=== PATIENT | female | born 1985 | race Caucasian/White ===

== ENCOUNTER 2020-06-20 14:20 | Emergency (ER) ==
[2020-06-20 14:26] VITALS: BP 134/88
== END 2020-06-20 16:18 | disposition left against medical advice (07) ==
LOC: ER 14:20
DX: Z53.21 Procedure and treatment not carried out due to patient leaving prior to being seen by health care provider (principal)

== ENCOUNTER 2020-06-21 19:11 | Emergency (ER) | payer MEDICARE, MEDICAID ==
--- NOTE | 2020-06-21 19:47 | ER Document Report ---
HPI - HPI Time Seen by Provider: 06/21/20 19:23 Notes: 34-year-old female patient presenting to the emergency department requesting COVID-19 testing. She states she has been having cough and shortness of breath for a week now. She did come to the emergency department yesterday but left without being seen. She is mildly tachycardic on arrival with a heart rate of 108, patient reports her heart rate usually ranges from 110-120. She has not had any known exposure to any COVID-19 positive persons. - ROS Systems Reviewed and Negative: Yes All other systems reviewed and negative - CONSTITUTIONAL Constitutional: REPORTS: Fever, Chills - EENT EENT: REPORTS: Sore Throat. DENIES: Ear Pain, Eye problems - NEURO Neurology: REPORTS: Headache. DENIES: Weakness, Vision blurred, Dizzinesss / Vertigo - CARDIOVASCULAR Cardiovascular: REPORTS: Chest pain - RESPIRATORY Respiratory: REPORTS: Trouble Breathing, Coughing - GASTROINTESTINAL Gastrointestinal: DENIES: Abdominal Pain, Black / Bloody Stools - URINARY Urinary: DENIES: Dysuria, Urgency, Frequency - MUSCULOSKELETAL Musculoskeletal: DENIES: Extremity pain Past Medical History - General Information source: Patient - Social History Smoking Status: Current Every Day Smoker Frequency of alcohol use: None Family History: DM, Hypertension - Past Medical History Cardiac Medical History: Reports: Hx Hypertension Pulmonary Medical History: Reports: Hx Asthma Endocrine Medical History: Reports: Hx Diabetes Mellitus Type 2 Psychiatric Medical History: Reports: Hx Bipolar Disorder Past Surgical History: Reports: Hx Hysterectomy Vertical Provider Document - CONSTITUTIONAL Notes: PHYSICAL EXAMINATION: GENERAL: Well-appearing, well-nourished and in no acute distress. HEAD: Atraumatic, normocephalic. EYES: Pupils equal round and reactive to light, extraocular movements intact, conjunctiva are normal. ENT: Nares patent, oropharynx clear without exudates. Moist mucous membranes. NECK: Normal range of motion, supple without lymphadenopathy LUNGS: Breath sounds clear to auscultation bilaterally and equal. No wheezes rales or rhonchi. HEART: Regular rate and rhythm without murmurs ABDOMEN: Soft, nontender, nondistended abdomen. No guarding, no rebound. No masses appreciated. Female : deferred Musculoskeletal: Normal range of motion, no pitting or edema. No cyanosis. NEUROLOGICAL: Cranial nerves grossly intact. Normal speech, normal gait. Normal sensory, motor exams PSYCH: Normal mood, normal affect. SKIN: Warm, Dry, normal turgor, no rashes or lesions noted. Course - Re-evaluation Re-evalutation: Patient appears well, nontoxic, chest x-ray unremarkable. Patient's heart rate is elevated to 108, she states this is her baseline. She will be discharged home after administration of a COVID-19 test. I will give her a prescription for some Tessalon Perles. Patient understands the need to self quarantine until she receives her test results or becomes asymptomatic for at least 3 days. - Vital Signs Vital signs: Temp Pulse Resp BP Pulse Ox 99.6 F 108 H 142/94 H 98 06/21/20 19:22 06/21/20 19:22 06/21/20 19:22 06/21/20 19:22 Discharge - Discharge Clinical Impression: Encounter for laboratory testing for COVID-19 virus Condition: Stable Disposition: HOME, SELF-CARE Additional Instructions: Your COVID-19 results are pending. Please self quarantine until you have received your results. Tylenol or ibuprofen for any fever or body aches. Stop smoking. Drink plenty of fluids. Return to the emergency department if you develop profound difficulty breathing. Prescriptions: Benzonatate [Tessalon Perles 100 mg Capsule] 2 tab PO Q8HP PRN #30 capsule PRN Reason:
--- NOTE | 2020-06-21 20:38 | RADIOLOGY REPORT (SQ) ---
EXAM DESCRIPTION: XR CHEST 1 VIEW COMPLETED DATE/TME: 06/21/2020 19:46 CLINICAL HISTORY: 34 years, Female, cough/shortness of breath COMPARISON: None. TECHNIQUE: Upright portable chest x-ray FINDINGS: Cardiomediastinal silhouette is not enlarged. No suspicious acute lung pleural bone abnormalities. IMPRESSION: Negative chest x-ray
[2020-06-21] MEDS ORDERED: BENZONATATE 100 MG CAPSULE PO ONE (21:44)
[2020-06-21] MEDS ORDERED: ONDANSETRON ODT 4 MG TAB (6 TAB/ER DISP) PO PRN (21:44)
[2020-06-21 22:36] VITALS: BP 145/90
== END 2020-06-21 22:49 | disposition home or self-care (01) ==
LOC: ER 19:11
DX: R05 Cough (principal); J45.909 Unspecified asthma, uncomplicated; R06.02 Shortness of breath; R50.9 Fever, unspecified; R00.0 Tachycardia, unspecified; J02.9 Acute pharyngitis, unspecified; R51 Headache; F17.200 Nicotine dependence, unspecified, uncomplicated; I10 Essential (primary) hypertension; E11.9 Type 2 diabetes mellitus without complications; Z20.828 Contact with and (suspected) exposure to other viral communicable diseases
CPT/HCPCS: 99284; 71045; U0003; A9270 ×2; C9803; 87635

== ENCOUNTER → 2020-07-15 | Outpatient (CLI) | payer MEDICARE, MEDICAID ==
[2020-07-15 10:18] LABS: ALKALINE PHOSPHATASE 89 U/L (38-126); ANION GAP 14 (5-19); ASPARTATE AMINO TRANSFERASE 25 U/L (14-36); BILIRUBIN,DIRECT 0.4 mg/dL (0.0-0.4); BILIRUBIN,TOTAL 0.5 mg/dL (0.2-1.3); CALCIUM 9.4 mg/dL (8.4-10.2); CARBON DIOXIDE 20 mmol/L (22-30); CHLORIDE 99 mmol/L (98-107); GLUCOSE 348 mg/dL (75-110); POTASSIUM 4.8 mmol/L (3.6-5.0); TOTAL PROTEIN 7.2 g/dL (6.3-8.2)
[2020-07-15 10:19] LABS: BLOOD UREA NITROGEN 17 mg/dL (7-20)
[2020-07-15 10:24] LABS: CHOLESTEROL 364.25 mg/dL (0-200)
--- NOTE | 2020-07-15 13:07 | RADIOLOGY REPORT (SQ) ---
EXAM DESCRIPTION: LUMBAR SPINE COMPLETE IMAGES COMPLETED DATE/TIME: 07/15/2020 9:37 am REASON FOR STUDY: LUMBAGO WITH SCIATICA, LEFT SIDE M54.42 LUMBAGO WITH SCIATICA, LEFT SIDE R91.8 O THER NONSPECIFIC ABNORMAL FINDING OF LUNG FIELD I10 ESSENTIAL (PRIMARY) HYPERTENSION COMPARISON: None. NUMBER OF VIEWS: Five views including obliques. TECHNIQUE: AP, lateral, oblique, and sacral radiographic images acquired of the lumbar spine. LIMITATIONS: None. FINDINGS: MINERALIZATION: Normal. SEGMENTATION: Normal. No transitional anatomy. ALIGNMENT: Normal. VERTEBRAE: Maintained height. No fracture or worrisome bone lesion. DISCS: Preserved height. No significant osteophytes or end plate irregularity. POSTERIOR ELEMENTS: Pedicles and facets are intact. No pars defect or posterior arch defects. HARDWARE: None in the spine. PARASPINAL SOFT TISSUES: Normal. PELVIS: Intact as visualized. No fractures or worrisome bone lesions. SI joints intact. OTHER: No other significant finding. IMPRESSION: NORMAL 5 VIEW LUMBAR SPINE. TECHNICAL DOCUMENTATION: JOB ID: [id number] [employer]- All Rights Reserved Reading location - IP/workstation name: [email or web address]
[2020-07-15 13:55] LABS: TRIGLYCERIDES 6409 mg/dL (<150)
== END ==
LOC: OD 08:59
PROVIDERS: ATTEND Nurse Practitioner Adult Health
DX: R91.8 Other nonspecific abnormal finding of lung field (principal); M54.42 Lumbago with sciatica, left side; I10 Essential (primary) hypertension; E11.9 Type 2 diabetes mellitus without complications
CPT/HCPCS: 36415; 72110; 80053; 80061; 83036

== ENCOUNTER → 2020-08-11 | Outpatient (CLI) | payer MEDICARE, MEDICAID ==
--- NOTE | 2020-08-11 12:37 | RADIOLOGY REPORT (SQ) ---
EXAM DESCRIPTION: CHEST PA/LATERAL IMAGES COMPLETED DATE/TIME: 08/11/2020 9:43 am REASON FOR STUDY: SOLITARY PULMONARY NODULE COMPARISON: 06/21/2020 EXAM PARAMETERS: NUMBER OF VIEWS: two views TECHNIQUE: Digital Frontal and Lateral radiographic views of the chest acquired. RADIATION DOSE: NA LIMITATIONS: none FINDINGS: LUNGS AND PLEURA: No opacities, masses or pneumothorax. No pleural effusion. MEDIASTINUM AND HILAR STRUCTURES: No masses or contour abnormalities. HEART AND VASCULAR STRUCTURES: Heart normal size. No evidence for failure. BONES: No acute findings. HARDWARE: None in the chest. OTHER: No other significant finding. IMPRESSION: NO SIGNIFICANT RADIOGRAPHIC FINDING IN THE CHEST. TECHNICAL DOCUMENTATION: JOB ID: [id number] 2010 [employer]- All Rights Reserved Reading location - IP/workstation name: [email or web address]
== END ==
LOC: OD 09:06
PROVIDERS: ATTEND Nurse Practitioner Family
DX: R91.1 Solitary pulmonary nodule (principal)
CPT/HCPCS: 71046

== ENCOUNTER 2020-11-07 17:06 | Emergency (ER) | payer MEDICARE, MEDICAID ==
--- NOTE | 2020-11-07 17:27 | ER Document Report ---
ED Medical Screen (RME) - General Stated Complaint: BREATHING PROBLEM, CHEST PAIN, HEADACHE Primary Care Provider: AUNG ALCANTAR NP [Primary Care Provider] - Follow up as needed - HPI Notes: 11/07/20 17:24 Rapid Medical Exam HPI: Pt is a 35yo female c/o worsening sob, diarrhea, and coughing since diagnosed w/ COVID. limited po intake due to everytime she tries to eat it makes her cough. pt took dayquil a couple hours ago. temp today 100.8 at 1400. using inhaler w/o relief. Physical Exam: GENERAL: well-nourished and mild distress due to illness. HEAD: Atraumatic, normocephalic. ENT: Moist mucous membranes. RESP: tachypnea, mildly labored CV- tachy NEURO: No focal neurological deficits. Moves all extremities spontaneously and on command. My involvement in this patients care was limited to a rapid initial assessment. A comprehensive ED assessment and evaluation of the patient, analysis of test results, treatment, and completion of the medical decision making process will be performed by other ER providers. Past Medical History - Past Medical History Cardiac Medical History: Reports: Hx Hypertension Pulmonary Medical History: Reports: Hx Asthma Endocrine Medical History: Reports: Hx Diabetes Mellitus Type 2 Psychiatric Medical History: Reports: Hx Bipolar Disorder Past Surgical History: Reports: Hx Hysterectomy Doctor's Discharge - Discharge Referrals: AUNG ALCANTAR NP [Primary Care Provider] - Follow up as needed
[2020-11-07] MEDS ORDERED: DEXAMETHASONE SOD PHOS INJ 10 MG/1 ML VIAL IV ONE (17:28)
[2020-11-07] MEDS ORDERED: NORMAL SALINE 500 ML IV ONE (17:28)
[2020-11-07 17:33] VITALS: BP 138/89
--- NOTE | 2020-11-07 17:54 | EKG REPORT ---
SEVERITY:- ABNORMAL ECG - SINUS TACHYCARDIA LEFT ATRIAL ABNORMALITY : Confirmed by: Keaton Morgan MD 07-Nov-2020 17:53:37
--- NOTE | 2020-11-07 18:06 | RADIOLOGY REPORT (SQ) ---
EXAM DESCRIPTION: CHEST SINGLE VIEW IMAGES COMPLETED DATE/TIME: 11/07/2020 2:56 pm REASON FOR STUDY: sob, covid COMPARISON: 08/11/2020 EXAM PARAMETERS: NUMBER OF VIEWS: One view. TECHNIQUE: Single frontal radiographic view of the chest acquired. RADIATION DOSE: NA LIMITATIONS: None. FINDINGS: LUNGS AND PLEURA: Some prominent lung markings are stable. No new consolidation, pleural effusion, or pneumothorax. MEDIASTINUM AND HILAR STRUCTURES: No masses. Contour normal. HEART AND VASCULAR STRUCTURES: Heart normal in size. Normal vasculature. BONES: No acute findings. HARDWARE: None in the chest. OTHER: No other significant finding. IMPRESSION: Stable appearance of the chest. No acute radiographic abnormality or significant interv al change. TECHNICAL DOCUMENTATION: JOB ID: [id number] 2010 [employer]- All Rights Reserved Reading location - IP/workstation name: [email or web address]
== END 2020-11-07 20:00 | disposition left against medical advice (07) ==
LOC: ER 17:06
DX: U07.1 COVID-19 (principal); R05 Cough; R07.9 Chest pain, unspecified; R51.9 Headache, unspecified; I10 Essential (primary) hypertension; E11.9 Type 2 diabetes mellitus without complications; Z90.710 Acquired absence of both cervix and uterus
CPT/HCPCS: 71045; 93005; 93010; 99284